=== PATIENT | female | born 1990 | race Caucasian/White ===

== ENCOUNTER 2017-02-15 07:24 | Inpatient (IN) | payer MEDICAID ==
[~2017-02-15] VITALS: Ht 162.6 cm; Wt 74.5 kg
[2017-02-15 07:45] VITALS: Ht 162.6 cm; Wt 74.5 kg
[2017-02-15 07:46] VITALS: BP 120/70; PULSE 76
[2017-02-15] MEDS ORDERED: PRENAT PO (07:47)
--- NOTE | 2017-02-15 09:27 | RADRPT ---
PROCEDURE: OB ultrasound for biophysical profile with JESSA. CLINICAL INDICATION: Abdominal pain. TECHNIQUE: Multiple sonographic images of the gravid uterus were obtained. The images were review ed on a PACS workstation. COMPARISON: Exam dated 08/16/2016. FINDINGS: breathing movement = 2/2 tone = 2/2 motion = 2/2 JESSA = 2/2 There is a single viable intrauterine gestation with cardiac and a heart rate of 133 bpm. Ther e is a cephalic presentation and a posterior, grade 1-2 placenta There is no evidence of abruption or placenta previa. JESSA = 8.21 cm IMPRESSION: 1. Single viable intrauterine gestation. 2. Biophysical profile = 8. 3. JESSA = 8.21 cm. RPTAT: GG .Tommy Dietrich MD, MD Date Time Electronically viewed and signed by .Tommy Dietrich MD, MD on 02/15/2017 09:27 .P/
[2017-02-15] MEDS ORDERED: LIDOCAINE 1% (MPF) 30 ML INJ INJ PRN (10:00)
[2017-02-15] MEDS ORDERED: OXYTOCIN 30 UNITS/LR 500 ML IV PRN (10:00)
[2017-02-15] MEDS ORDERED: METHYLERGONOVINE 0.2 MG INJ IM PRN (10:00)
[2017-02-15] MEDS ORDERED: BUTORPHANOL 2 MG INJ IV PRN ×2 (10:00)
[2017-02-15] MEDS ORDERED: LACTATED RINGER'S 1,000 ML IV PRN (10:00)
[2017-02-15] MEDS ORDERED: MISOPROSTOL 200 MCG TAB PR PRN (10:00)
[2017-02-15] MEDS ORDERED: CARBOPROST 250 MCG INJ IM PRN (10:00)
[2017-02-15 10:32] LABS: ADD SCAN DIFF NO
[2017-02-15 10:37] LABS: BASOPHILS % 0.4 % (0.0-2.0); EOSINOPHILS # 0.1 10^3/ul (0.0-0.5); EOSINOPHILS % 0.6 % (0.0-7.0); HEMATOCRIT 32.8 % (37.0-47.0); HEMOGLOBIN 11.3 g/dl (12.0-16.0); LYMPHOCYTES # 1.8 10^3/ul (0.8-2.9); LYMPHOCYTES % 21.5 % (15.0-51.0); MEAN CORPUSCULAR HGB CONC 34.5 g/dl (32.0-37.0); MEAN CORPUSCULAR VOLUME 90.1 fl (82.0-101.0); MONOCYTE # 0.5 10^3/ul (0.3-0.9); MONOCYTES % 6.5 % (0.0-11.0); NEUTROPHIL # 5.8 10^3/ul (1.6-7.5); NEUTROPHILS % 70.5 % (39.0-77.0); PLATELET COUNT 204 10^3/UL (140-415); RED BLOOD COUNT 3.64 10^6/ul (4.20-5.40); RED CELL DISTRIBUTION WIDTH 13.5 % (11.5-14.5); WHITE BLOOD COUNT 8.2 10^3/ul (4.8-10.8)
[2017-02-15 10:47] LABS: INR 0.94; PROTIME 12.6 Sec (12.2-14.2)
[2017-02-15] MEDS: LACTATED RINGER'S 1,000 ML IV SCH ×2 (10:47→18:44)
[2017-02-15 10:48] LABS: PARTIAL THROMBOPLASTIN TIME 22.9 Sec (25.0-35.0)
--- NOTE | 2017-02-15 11:30 | RADRPT ---
PROCEDURE: US OB. CLINICAL INDICATION: Size and dates , pain TECHNIQUE: Multiple sonographic images of the pelvis and gravid uterus were obtained. The images were reviewed on a PACS workstation. COMPARISON: 02/15/17 FINDINGS: There is a single viable intrauterine gestation. Cardiac activity is present with 135 beats per min landy. There is a vertex presentation. The placenta is posterior. There is no evidence for an abruption or placenta previa. Measurements were made in order to determine age. The results are as follows: BPD =9.0 cm HC =32.1 cm AC =33.8 cm FL =7.2 cm Estimated gestational age of approximately 36 weeks and 6 days based on ultrasound measurements. Clinical age: 37 weeks and 1 day. The estimated date of delivery is 03/09/17, based on ultrasound measurements. The EFW = 3156 g, 59.9%, based on LMP age. RPTAT: AA IMPRESSION: Single viable intrauterine gestation of approximately 36 weeks and 6 days based on ultrasound measu rements. .Reed Chaparro MD, Date Time Electronically viewed and signed by .Reed Chaparro MD, on 02/15/2017 11:30 .S/
[2017-02-15] MEDS ORDERED: OXYTOCIN 30 UNITS/LR 500 ML IV SCH (22:00)
[2017-02-15] MEDS ORDERED: AMPICILLIN 2 GM/NS (PMX) 100 ML IV ONE (22:00)
[2017-02-16] MEDS ORDERED: OXYTOCIN 30 UNITS/LR 500 ML IV SCH (01:30)
--- NOTE | 2017-02-16 01:50 | HP ---
Date/Time of Note Date/Time of Note DATE: 02/16/17 TIME: 01:49 OB - History Hx of Present Free Text/Dictation 37+wks GDM Labor Care: Good Care Ultrasounds: Normal mid trimester US Obstetrical Complications: Gestational Diabetes Medical Complications: None Past Family/Social History * Past Medical, Surgical, Family and Obstetric Histories reviewed from chart. OB Admission Exam Vital Signs Vital Signs Vital Signs Date Time Temp Pulse Resp B/P Pulse Ox O2 Delivery O2 Flow Rate FiO2 02/15/17 07:46 98.2 76 120/70 Physical Exam Abdomen: WNL Extremities: Normal Cervical Dilatation: 5cm Effacement: 100% Station: -2 Amniotic Fluid: Clear Heart Rate: 140's Accelerations: Accelerations Present Decelerations: No Decelerations Varibility: Moderate Contractions on Admission: 6-10 Minutes Apart Last 72 hours Lab Results CBC & BMP 02/15/17 10:20 OB Assessment/Plan Induction Method: per Pitocin Protocol RUSSELL TOMLINSON M.D. Feb 16, 2017 01:50
--- NOTE | 2017-02-16 01:51 | LDN ---
Date/Time of Note Date/Time of Note DATE: 02/16/17 TIME: 01:50 Delivery Summary Placenta Delivered: Spontaneously Meconium: none Episiotomy: No Anesthesia type: Epidural Estimated blood loss: 200 Sponge & Needle done & correct: Yes All needle counts correct: Yes Any foreign bodies felt in the: No Problems: Delivery Information Apgars 1 Minute: 9 5 Minute: 9 Suctioning Nose & mouth suctioned at melissa: Yes Delee suction performed: Yes Umbilical Cord Umbilical cord with: 3 Vessels Cord presentations: no nuchal cord Cord Blood was obtained: Yes RUSSELL TOMLINSON M.D. Feb 16, 2017 01:51
[2017-02-16] MEDS ORDERED: AMPICILLIN 1 GM/NS (PMX) 50 ML IV SCH (02:00)
[2017-02-16 03:00] VITALS: BP 122/69; PULSE 80; RESP 20
[2017-02-16 03:30] VITALS: BP 116/65; PULSE 83; RESP 18
[2017-02-16] MEDS ORDERED: LACTATED RINGER'S 1,000 ML IV* SCH (03:56)
[2017-02-16] MEDS ORDERED: CARBOPROST 250 MCG INJ IM PRN (04:00)
[2017-02-16] MEDS ORDERED: LANOLIN 7 GM TUBE TOP PRN (04:00)
[2017-02-16] MEDS ORDERED: BENZOCAINE 20% 56 ML SPRAY TOP PRN (04:00)
[2017-02-16] MEDS ORDERED: OXYTOCIN 30 UNITS/LR 500 ML IV PRN (04:00)
[2017-02-16] MEDS ORDERED: WITCH HAZEL/GLYCERIN PAD PR PRN (04:00)
[2017-02-16] MEDS ORDERED: ZOLPIDEM 5 MG TAB PO PRN (04:00)
[2017-02-16] MEDS ORDERED: SENNA/DOCUSATE NA (8.6MG/50MG) TAB PO PRN (04:00)
[2017-02-16] MEDS ORDERED: MISOPROSTOL 200 MCG TAB PR PRN (04:00)
[2017-02-16] MEDS ORDERED: METHYLERGONOVINE 0.2 MG INJ IM PRN (04:00)
[2017-02-16] MEDS: IBUPROFEN 600 MG TAB PO SCH ×3 (06:24→17:59)
[2017-02-16 08:00] VITALS: BP 98/52; PULSE 75; RESP 18
[2017-02-16 08:13] LABS: ADD SCAN DIFF NO
[2017-02-16 08:46] LABS: BASOPHILS % 0.2 % (0.0-2.0); EOSINOPHILS % 0.2 % (0.0-7.0); HEMATOCRIT 30.5 % (37.0-47.0); HEMOGLOBIN 10.2 g/dl (12.0-16.0); LYMPHOCYTES # 1.7 10^3/ul (0.8-2.9); LYMPHOCYTES % 13.5 % (15.0-51.0); MEAN CORPUSCULAR HEMOGLOBIN 30.4 pg (29.0-33.0); MEAN CORPUSCULAR HGB CONC 33.4 g/dl (32.0-37.0); MEAN PLATELET VOLUME 11.2 fl (7.4-10.4); MONOCYTE # 0.9 10^3/ul (0.3-0.9); MONOCYTES % 6.6 % (0.0-11.0); NEUTROPHIL # 10.2 10^3/ul (1.6-7.5); PLATELET COUNT 209 10^3/UL (140-415); RED BLOOD COUNT 3.35 10^6/ul (4.20-5.40); RED CELL DISTRIBUTION WIDTH 13.7 % (11.5-14.5); WHITE BLOOD COUNT 12.9 10^3/ul (4.8-10.8)
[2017-02-16] MEDS: SENNA/DOCUSATE NA (8.6MG/50MG) TAB PO SCH ×2 (09:30→21:25)
[2017-02-16 12:30] VITALS: BP 95/48; PULSE 70; RESP 16
[2017-02-16 16:00] VITALS: BP 112/74; PULSE 63; RESP 18
[2017-02-16 19:50] VITALS: BP 118/65; PULSE 69; RESP 19
--- NOTE | 2017-02-16 23:07 | QN ---
Documentation Comment PPD#1 is stable afebrile tolerates diet No VB +BM +voids No sign of depression VS stable Gen NAD Abd soft NT ND Genitalia No blood at perinium __>Discharge plan tomorrow RUSSELL TOMLINSON M.D. Feb 16, 2017 23:07
--- NOTE | 2017-02-16 23:08 | DS ---
Date/Time of Note Date/Time of Note DATE: 02/16/17 TIME: 23:07 Discharge Summary Admission/Discharge Info Admit Date/Time Feb 15, 2017 at 09:55 Discharge Date/Time February 17/2017 Final Diagnosis labor Patient Condition: Stable Procedures vaginal delivery Hospital Course uneventful Home Meds Reported Medications Multivit/Min/Fol Ac/Iron/Pren* ( S*) 1 Tab Tab, 1 TAB PO DAILY, TAB 02/15/17 Pending Labs Laboratory Tests Test 02/16/17 07:50 White Blood Count 12.910^3/ul (4.8-10.8) Red Blood Count 3.3510^6/ul (4.20-5.40) Hemoglobin 10.2g/dl (12.0-16.0) Hematocrit 30.5% (37.0-47.0) Mean Corpuscular Volume 91.0fl (82.0-101.0) Mean Corpuscular Hemoglobin 30.4pg (29.0-33.0) Mean Corpuscular Hemoglobin Concent 33.4g/dl (32.0-37.0) Red Cell Distribution Width 13.7% (11.5-14.5) Platelet Count 69796^3/UL (140-415) Mean Platelet Volume 11.2fl (7.4-10.4) Neutrophils % 79.0% (39.0-77.0) Lymphocytes % 13.5% (15.0-51.0) Monocytes % 6.6% (0.0-11.0) Eosinophils % 0.2% (0.0-7.0) Basophils % 0.2% (0.0-2.0) Nucleated Red Blood Cells % 0.0/100WBC (0.0-0.0) Neutrophils # 10.210^3/ul (1.6-7.5) Lymphocytes # 1.710^3/ul (0.8-2.9) Monocytes # 0.910^3/ul (0.3-0.9) Eosinophils # 0.010^3/ul (0.0-0.5) Basophils # 0.010^3/ul (0.0-0.1) Nucleated Red Blood Cells # 0.010^3/ul (0.0-0.0) RUSSELL TOMLINSON M.D. Feb 16, 2017 23:08
[2017-02-17] MEDS: IBUPROFEN 600 MG TAB PO SCH ×5 (00:04→23:37)
[2017-02-17 03:45] VITALS: BP 106/56; PULSE 62; RESP 19
[2017-02-17 08:10] VITALS: BP 113/71; PULSE 69; RESP 18
[2017-02-17] MEDS: OXYCODONE/ASPIRIN (4.88/325) TAB PO PRN ×2 (08:10→20:22)
[2017-02-17] MEDS: SENNA/DOCUSATE NA (8.6MG/50MG) TAB PO SCH ×2 (08:10→20:22)
[2017-02-17 16:00] VITALS: BP 109/61; PULSE 64; RESP 18
[2017-02-17 20:25] VITALS: BP 127/85; PULSE 68; RESP 18
[2017-02-18] MEDS: OXYCODONE/ASPIRIN (4.88/325) TAB PO PRN ×2 (03:41→13:04)
[2017-02-18 03:45] VITALS: BP 111/63; PULSE 70; RESP 18
[2017-02-18] MEDS: IBUPROFEN 600 MG TAB PO SCH ×3 (05:40→17:36)
[2017-02-18 08:00] VITALS: BP 108/57; PULSE 68; RESP 18
[2017-02-18] MEDS: SENNA/DOCUSATE NA (8.6MG/50MG) TAB PO SCH (08:54)
[2017-02-18] MEDS ORDERED: DIPHTH/TET/ACEL PERTUSS (ADULT) 0.5 ML VIAL IM* ONE (09:00)
[2017-02-18 15:48] VITALS: BP 112/62; PULSE 72; RESP 20
== END 2017-02-18 18:47 | disposition home or self-care (01) | DRG 775 ==
LOC: OBT 07:24 → L-D 07:25 → OBT 09:54 → L-D 09:55 → PP1 02-16 02:56
PROVIDERS: ADMIT Obstetrics & Gynecology; ATTEND Obstetrics & Gynecology
PROC: 10E0XZZ Delivery of Products of Conception, External Approach (ICD-10-PCS; principal; 2017-02-16)
DX: O24.429 Gestational diabetes mellitus in childbirth, unspecified control (principal); Z37.0 Single live birth; Z3A.37 37 weeks gestation of pregnancy
CPT/HCPCS: 76815; 76818; 85025; 85610; 85730; 86592; 86900; 86901; 90715; G0463; J0290; J2590; J7120

== ENCOUNTER 2018-09-19 19:30 | Inpatient (IN) | END 2018-09-22 16:00 | disposition home or self-care (01) | DRG 807 ==

== ENCOUNTER 2018-12-30 10:42 | Day surgery (SDC) | payer MEDICAID ==
--- NOTE | 2018-12-29 11:13 | PREOPHP ---
DATE OF ADMISSION: 12/30/2018 HISTORY OF PRESENT ILLNESS: Ms. Bren Cárdenas is a 28-year-old 6, para 6, desires permanent surgical sterilization. PAST MEDICAL HISTORY: None. MEDICATIONS: None. PAST SURGICAL HISTORY: None. OBSTETRIC HISTORY: x6 vaginal deliveries. GYNECOLOGIC HISTORY: 11, regular 3 to 4 days. Denies any sexually transmitted infections. Sexually active with 1 partner. SOCIAL HISTORY: Denies any smoking, drugs or alcohol. FAMILY HISTORY: None. REVIEW OF SYSTEMS: All within normal except history of present illness. PHYSICAL EXAMINATION: HEENT: Within normal. LUNGS: CTA bilateral. CARDIOVASCULAR: S1, S2, regular rhythm. ABDOMEN: Soft, nontender, negative distention. EXTREMITIES: Negative. No calf tenderness. VAGINAL: Normal external genitalia. Cervix negative CMT, negative lesions. Adnexa negative mass, n ontender bilateral. Fundus within normal limits. ASSESSMENT: Multiparity, desires permanent surgical sterilization. PLAN: Consent for laparoscopic bilateral tubal sterilization. Risks, benefits explained. All quest ions answered. Dictated By: LYNNE CERDA/KEN Conf#: [id number] DID#: [id number]
[2018-12-30] VITALS (20 sets, daily range): BP systolic 96–119; BP diastolic 59–70; PULSE 52–68; RESP 10–25; Ht 162.6 cm; Wt 72.8 kg
[~2018-12-30] VITALS: Ht 162.6 cm; Wt 72.8 kg
[~2018-12-30 10:42] MED LIST: NEOSTIGMINE 10 MG INJ ONE
--- NOTE | 2018-12-30 12:02 | HPN ---
Date/Time of Note Date/Time of Note DATE: 12/30/18 TIME: 12:02 Interval H&P Admission Note Pt. seen H&P reviewed: No system changes LYNNE MERRITT MD Dec 30, 2018 12:02
--- NOTE | 2018-12-30 12:07 | PREAC ---
Date/Time of Note Date/Time of Note DATE: 12/30/18 TIME: 12:06 Anesthesia Eval and Record Evaluation Time Pre-Procedure Interview DATE: 12/30/18 TIME: 12:06 Age 28 Sex female NPO: 8 hrs Preoperative diagnosis MULTIPARITY, NEED FOR STERILIZATION Planned procedure LAP BTL Past Medical History Past Medical History: None Surgery & Anesthesia Issues No known issue Meds Anticoagulation: No Beta Waylon within 24 hr: No Reason Beta Waylon not given: Pt. not on B-Waylon No Active Prescriptions or Reported Meds Meds reviewed: Yes Allergies Coded Allergies: No Known Drug Allergy (Verified Allergy, Unknown, 12/30/18) Allergies Reviewed: Yes Labs/Studies Labs Reviewed: Reviewed by anesthesiologist test: Negative Pre-procedure Exam Last vitals Vital Signs Date Temp Pulse Resp B/P (MAP) Pulse Ox O2 O2 Flow FiO2 Time Delivery Rate 12/30/18 97.7 68 16 119/69 Room Air 11:51 (86) Airway: Adequate mouth opening, Adequate thyromental dist Mallampati: Mallampati II Teeth: Normal Lung: Normal Heart: Normal ASA Physical Status ASA physical status: 1 Emergency: None Planned Anesthetic General/MAC: ETT Planned Pain Management Parenteral pain med Pre-operative Attestations Prior to commencing anesthesia and surgery, the patient was re-evaluated, there was verification of: *The patient's identity *The results of appropriate recent lab work and preoperative vital signs *The above evaluation not changing prior to induction *Anesthetic plan, risk benefits, alternative and complications discussed with patient/family; questions answered; patient/family understands, accepts and wishes to proceed. Sxito James M.D. Dec 30, 2018 12:07
[2018-12-30] MEDS ORDERED: CEFAZOLIN 1 GM INJ ONE (12:11)
[2018-12-30] MEDS ORDERED: GLYCOPYRROLATE 0.4 MG INJ ONE (12:11)
[2018-12-30] MEDS ORDERED: ROCURONIUM 50 MG INJ ONE (12:11)
[2018-12-30] MEDS ORDERED: PROPOFOL 20 ML ONE (12:11)
[2018-12-30] MEDS ORDERED: ONDANSETRON 4 MG INJ ONE (12:13)
[2018-12-30] MEDS ORDERED: MIDAZOLAM 1 MG/ML 2 ML INJ ONE (12:13)
[2018-12-30] MEDS ORDERED: DEXAMETHASONE 4 MG/ML 5 ML INJ ONE (12:13)
[2018-12-30] MEDS ORDERED: FENTAnyl 50 MCG/ML VIAL ONE (12:13)
[2018-12-30] MEDS ORDERED: MIDAZOLAM 1 MG/ML 2 ML INJ IV PRN (12:30)
[2018-12-30] MEDS ORDERED: MEPERIDINE 25 MG INJ IV PRN (12:30)
[2018-12-30] MEDS ORDERED: LABETALOL HCL 20MG INJ IV PRN (12:30)
[2018-12-30] MEDS ORDERED: FENTAnyl 50 MCG/ML VIAL IV PRN ×3 (12:30)
[2018-12-30] MEDS ORDERED: ONDANSETRON 4 MG INJ IV PRN (12:30)
[2018-12-30] MEDS ORDERED: OXYCODONE/ACETAMINOPHEN (5/325) TAB PO PRN ×2 (12:30)
[2018-12-30] MEDS ORDERED: IPRATROPIUM (NEB) 0.5 MG/2.5 ML AMP HHN PRN (12:30)
[2018-12-30] MEDS ORDERED: EPHEDrine SULFATE 50 MG/5 ML SYG IV PRN (12:30)
[2018-12-30] MEDS ORDERED: HYDROmorphONE 1 MG/5 ML IV SYRINGE IV PRN ×3 (12:30)
[2018-12-30] MEDS ORDERED: hydrALAzine 20 MG INJ IV PRN (12:30)
[2018-12-30] MEDS ORDERED: ALBUTEROL 0.083% (NEB) 2.5 MG/3 ML AMP HHN PRN (12:30)
[2018-12-30] MEDS ORDERED: TRIMETHOBENZAMIDE 100 MG/ML VIAL IM PRN (12:30)
[2018-12-30] MEDS ORDERED: DIPHENHYDRAMINE 50 MG INJ IV PRN (12:30)
--- NOTE | 2018-12-30 13:12 | PD.PPDC ---
SKILLED NURSING FACILITIES PROFESSIONAL Discharge Instruction Condition [id number] Patient Condition: Stjww7w Good Diet Cyczb6Cc Diet: Jqhpa2c Resume Regular Diet Activity/Restrictions [id number] Activity: Xwlqo7q Normal Activity May Shower Drjlp9Ah Restrictions: Sylcf2p No Exercising No Lifting No Driving No Sexual Activity Nothing in the Vagina No Allgood No Tampons, douche Follow-up Follow-up with Physician: 2, Week/Weeks Return to clinic for [id number] COMPUTER SYSTEMS TECHNOLOGY INSTRUCTOR Instructions: Lzjhy0n Fever greater than 101 Chills Worsening abdominal pain Excessive Vaginal Bleeding More than 2 pads per hour Unable to tolerate diet Aaidq0Aj OB Instructions: Urcbg3l Breast Tenderness Depression Blurried Vision Headache Qwsbs1Wy Surgical Instructions: Kjvji8j Incisional Drainage Incisional Redness LYNNE MERRITT MD Dec 30, 2018 13:12
--- NOTE | 2018-12-30 13:14 | OPPN ---
Date/Time of Note Date/Time of Note DATE: 12/30/18 TIME: 13:13 Operative Report Planned Procedure Procedure date Dec 30, 2018 Procedure(s) laparoscopic bilateral tubal fulguration Performed by see signature line Grease Renderer: LYNNE MERRITT MD 2nd Grease Renderer none Pre-procedure diagnosis multiparity desire permanent sterilization [id number] Anesthesia Type: Bpizj2g general Post-Procedure Post-procedure diagnosis same Findings normal uterus tubes and ovaries. Estimated Blood Loss: minimal Specimen(s) none Grafts/Implant(s) none Complication(s) none LYNNE MERRITT MD Dec 30, 2018 13:14
--- NOTE | 2018-12-30 13:26 | PAC ---
Date/Time of Note Date/Time of Note DATE: 12/30/18 TIME: 13:26 Post-Anesthesia Notes Post-Anesthesia Note Last documented vital signs Vital Signs Date Temp Pulse Resp B/P (MAP) Pulse Ox O2 O2 Flow FiO2 Time Delivery Rate 12/30/18 97.7 68 16 119/69 Room Air 11:51 (86) Activity: WNL Respiratory function: WNL Cardiovascular function: WNL Mental status: Baseline Pain reasonably controlled: Yes Hydration appropriate: Yes Nausea/Vomiting absent: Yes ANTONINO TA Dec 30, 2018 13:26
--- NOTE | 2018-12-31 09:28 | OPR ---
DATE OF OPERATION: 12/30/2018 PREOPERATIVE DIAGNOSIS: Multiparity, desires permanent sterilization. POSTOPERATIVE DIAGNOSIS: Multiparity, desires permanent sterilization. OPERATION PERFORMED: Laparoscopic bilateral tubal fulguration. SURGEON: Lynne Palumbo MD PREFINISH OPERATOR: None. ANESTHESIA: General. COMPLICATIONS: None. ESTIMATED BLOOD LOSS: Minimal. FINDINGS: Normal uterus, tubes and ovaries. DESCRIPTION OF PROCEDURE: After explaining risks, benefits and alternatives, the patient and consent signed in chart, the patient was taken to the operating room where general anesthesia was obtained without difficulty. The patient was then examined under anesthesia and found to have a small anteverted uterus with normal adnexa. She was then placed in a dorsal lithotomy position, prepared and draped in a sterile fashion. A heavy weighted speculum was then placed in the patient's vagina and the anterior lip of the cervix was grasped with a single tooth tenaculum. A HUMI uterine manipulator was then advanced into the uterus to provide a means to manipulate the uterus. The speculum was then removed from the vagina. Attention was then turned to the patient's abdomen where a 5 mm skin incision was made in the umbilical fold. A Veress needle was carefully introduced into the peritoneal cavity at 45 degree angle while tenting the abdominal wall. Intraabdominal placement was confirmed by use of water-filled syringe and a drop in intraabdominal pressure with insufflation of CO2 gas. The trocar and sleeve were then advanced without difficulty into the abdomen where intra-abdominal placement was confirmed by laparoscope. Pneumoperitoneum was obtained with 4 liters of CO2 gas and the 5 mm trocar and sleeve were then advanced without difficulty into the abdomen where intra-abdominal placement was confirmed by laparoscope. A second skin incision was made 2 cm above the symphysis pubis in the midline. The second trocar and sleeve were then advanced under direct visualization. A survey of the patient's abdomen revealed entirely normal anatomy. The right fallopian tube was fulgurated at multiple areas of the isthmic and ampullary regions with good blanching. Similarly, the left fallopian tube was fulgurated. The instruments were then removed from the patient's abdomen and the incision was repaired with 3-0 Vicryl. The HUMI was then removed from the vagina with no bleeding noted from the cervix. The patient tolerated procedure well. All counts were correct. The patient was taken to recovery room in stable condition. Dictated By: LNYNE CERDA/KEN Conf#: [id number] DID#: [id number] MTDD
== END 2018-12-30 16:40 | disposition home or self-care (01) ==
LOC: SDS 10:42
PROVIDERS: ATTEND Obstetrics & Gynecology
DX: Z30.2 Encounter for sterilization (principal)
CPT/HCPCS: 58670; 84702; 85025; 86850; 86900; 86901; J0690; J1100; J2250; J2405; J2710; J3010; Z7512; Z7610

== ENCOUNTER 2019-01-02 11:10 | Emergency (ER) | payer MEDICAID ==
[~2019-01-02] VITALS: Wt 65.0 kg
[2019-01-02] MEDS ORDERED: IBUP-1542 PO (13:19)
--- NOTE | 2019-01-02 13:23 | ERD ---
ER Documentation Chief Complaint Chief Complaint pt states she needs something for pain , generalized no distress HPI 28-year-old otherwise healthy woman requesting a dose of ibuprofen for complaints of body aches. She has been standing up for the last few hours assisting her 3-month-old son who is being admitted for RSV positive bronchiolitis. She denies cough, no fevers or chills, no chest pain or shortness of breath ROS All systems reviewed and are negative except as per history of present illness. Medications Home Meds Active Scripts Ibuprofen* (Motrin*) 600 Mg Tab, 600 MG PO Q8 PRN for PAIN AND/OR INFLAMMATION, #30 TAB Prov:REMI BYRNES MD 01/02/19 Allergies Allergies: Coded Allergies: No Known Drug Allergy (Verified Allergy, Unknown, 01/02/19) PMhx/Soc Medical and Surgical Hx: pt denies Medical Hx, pt denies Surgical Hx History of Surgery: No Anesthesia Reaction: No Hx Neurological Disorder: No Hx Respiratory Disorders: No Hx Cardiac Disorders: No Hx Psychiatric Problems: No Hx Miscellaneous Medical Probl: No Hx Alcohol Use: No Hx Substance Use: No Hx Tobacco Use: No Smoking Status: Never smoker Physical Exam Vitals Vital Signs Date Temp Pulse Resp B/P (MAP) Pulse Ox O2 O2 Flow FiO2 Time Delivery Rate 01/02/19 98.0 78 18 119/85 98 11:17 (96) Physical Exam Const: No acute distress, appears hydrated, afebrile Head: Atraumatic Neck: Full range of motion. No meningismus. Resp: Clear to auscultation bilaterally Cardio: Regular rate and rhythm, no murmurs Abd: Soft, non tender, non distended. Normal bowel sounds Skin: No petechiae or rashes Back: No midline or flank tenderness Ext: No cyanosis, or edema Neur: Awake and alert x3, no focal deficits or facial asymmetry, pupils equal round reactive to light Psych: Normal Mood and Affect Results 24 hrs Current Medications Medications Dose Sig/Jl Start Time Status Last (Trade) Ordered Route PRN Stop Time Admin Dose Reason Admin Ibuprofen 600 mg ONCE ONCE 01/02/19 (Motrin) PO 13:30 01/02/19 13:31 Procedures/MDM I administered ibuprofen 600 mg p.o. x1 agreed to give her a prescription for ibuprofen as needed body aches. Reassurance was provided. Patient feels much better at this time, and vital signs are normal, symptoms have improved. I did give strict instructions to return to the ED if symptoms continue or worsen, patient will otherwise follow-up with primary care physician. Patient understood instructions and agreed to plan. Disclaimer: Inadvertent spelling and grammatical errors are likely due to EHR/dictation software use and do not reflect on the overall quality of patient care. Also, please note that the electronic time recorded on this note does not necessarily reflect the actual time of the patient encounter. Departure Diagnosis: Primary Impression: Encounter for medication refill Additional Impression: Body aches Condition: Good Patient Instructions: Muscle Spasm REMI BYRNES MD Jan 02, 2019 13:23
[2019-01-02] MEDS ORDERED: IBUPROFEN 600 MG TAB PO ONE (13:30)
[2019-01-02 13:56] VITALS: BP 110/84; PULSE 81; RESP 18
== END 2019-01-02 13:59 | disposition home or self-care (01) ==
LOC: E/R 11:10
DX: R52 Pain, unspecified (principal); Z76.0 Encounter for issue of repeat prescription
CPT/HCPCS: 99282